=== PATIENT | female | born 1980 | race Caucasian/White ===

== ENCOUNTER 2018-12-14 12:56 | Day surgery (SDC) | payer OTHER ==
[2018-12-13 15:33] VITALS: BMI 40.0
--- NOTE | 2018-12-14 14:41 | HP ---
Admitting History and Physical - Admission Chief Complaint: Abnormal History of Present Illness: 38 yo recently diagnosed with missed , is pre op for suction D&C. History Source: Patient Limitations to Obtaining History: No Limitations - Past Medical History ...LMP: 10/10/18 ...: No ...: 2 ...Para: 1 - Past Surgical History Past Surgical History: Yes: - Smoking History Smoking history: Never smoked Have you smoked in the past 12 months: No - Alcohol/Substance Use Hx Alcohol Use: No - Social History Usual Living Arrangement: Yes: With Significant Other History of Recent Travel: No Home Medications - Allergies Allergies/Adverse Reactions: Allergies Allergy/AdvReac Type Severity Reaction Status Date / Time No Known Allergies Allergy Verified 12/14/18 13:44 - Home Medications Home Medications: Ambulatory Orders NK [No Known Home Medication] 12/14/18 Family Disease History - Family Disease History Family History: Unremarkable Review of Systems - Review of Systems Constitutional: reports: No Symptoms Eyes: reports: No Symptoms HENT: reports: No Symptoms Neck: reports: No Symptoms Respiratory: reports: No Symptoms Gastrointestinal: reports: No Symptoms Genitourinary: reports: No Symptoms Breasts: reports: No Symptoms Reported Neurological: reports: No Symptoms Psychiatric: reports: No Symptoms Pain Intensity: 0 Physical Examination Vital Signs: Vital Signs Temperature 97.8 F 12/14/18 13:40 Pulse Rate 74 12/14/18 13:40 Respiratory Rate 18 12/14/18 13:40 Blood Pressure 108/68 12/14/18 13:40 O2 Sat by Pulse Oximetry (%) 97 12/14/18 13:39 Constitutional: Yes: Well Nourished Eyes: Yes: Conjunctiva Clear HENT: Yes: Atraumatic Neck: Yes: Supple Cardiovascular: Yes: Regular Rate and Rhythm Respiratory: Yes: Regular Gastrointestinal: Yes: Normal Bowel Sounds Neurological: Yes: Alert, Oriented ...Motor Strength: WNL Psychiatric: Yes: Alert, Oriented Problem List - Problems (1) Missed with demise before 20 completed weeks of gestation Code(s): O02.1 - MISSED Assessment/Plan Missed Pre op for suction D&C Consent signed Anesthesia to see patient
[2018-12-14] MEDS ORDERED: PROPOFOL 20 ML ONE (14:48)
[2018-12-14] MEDS ORDERED: ACETAMINOPHEN INJECTION 100 ML IVPB ONE (15:19)
[2018-12-14] MEDS ORDERED: oxyCODONE HCL 5 MG TABLET PO PRN (15:24)
[2018-12-14] MEDS ORDERED: ACETAMINOPHEN 1000 MG/100 ML VIAL (NON FORMULARY) IVPB ONE (15:24)
[2018-12-14] MEDS ORDERED: ONDANSETRON 4 MG/2 ML VIAL IVPUSH PRN (15:24)
--- NOTE | 2018-12-14 15:29 | OP ---
Operative Note - Note: Operative Date: 12/14/18 Pre-Operative Diagnosis: Missed Operation: Suction D&C Post-Operative Diagnosis: Same as Pre-op Surgeon: Arlet Lujan Anesthesia: General Specimens Removed: Product of conception Estimated Blood Loss (mls): 5 Operative Report Dictated: Yes
[2018-12-14] MEDS ORDERED: LACTATED RINGERS SOLUTION 1,000 ML IV SCH (15:30)
--- NOTE | 2018-12-14 15:59 | OP ---
DATE OF OPERATION: 12/14/2018 PREOPERATIVE DIAGNOSIS: Missed . POSTOPERATIVE DIAGNOSIS: Missed . PROCEDURE: Suction dilatation and curettage. SURGEON: Arlet Lujan MD ANESTHESIA: General. COMPLICATIONS: None. ESTIMATED BLOOD LOSS: 5 mL. DESCRIPTION OF PROCEDURE: Patient was taken to the operating room where general anesthesia was administered. Patient was then placed in lithotomy position. She was then prepped and draped in proper sterile fashion. A weighted speculum was placed in the vagina. The anterior lip of the cervix was grasped with a single-toothed tenaculum. The cervix was then sequentially dilated with Edwards dilators. An 8- mm suction curet was then gently introduced into the uterine cavity. The suction curet was then rotated to clear the uterus of all products of conception. A sharp curettage was then performed. The suction curet was then reintroduced to clear the uterus of all remaining products of conception. Then the instruments were removed. The patient was taken out of lithotomy position. She was taken to PACU in stable condition. PATHOLOGY: Products of conception. Maricarmen [id number] MTDD
[2018-12-14 17:52] VITALS: BP 118/70; PULSE 72; TEMP 98.2
--- NOTE | 2018-12-18 12:11 | PATH ---
Surgical Pathology Report Patient Name: ESTHER PRASAD Med. Rec. #: [id number] /Age/Gender: 1980 (Age: 38) / F Account: [id number] Location: [facility] SURGICAL Taken: 12/14/2018 Received: 12/15/2018 Reported: 12/18/2018 Physicians: Arlet Lujan M.D. Specimen(s) Received PRODUCTS OF CONCEPTION Clinical History Missed Final Diagnosis UTERINE CONTENTS, EVACUATION: CHORIONIC VILLI CONSISTENT WITH PRODUCTS OF CONCEPTION. Electronically Signed Yomi Nesbitt M.D. Gross Description Received in formalin labeled "products of conception," is a 9.5 x 8.5 x 0.8 cm aggregate of red-brown soft tissue fragments admixed with blood clot. Probable villous tissue is identified. No somatic tissue is identified. A banking representative portion is submitted in one cassette. /12/15/201812/15/2018
== END 2018-12-14 17:30 | disposition home or self-care (01) ==
LOC: JASU-SURG 12:56
PROVIDERS: ATTEND Obstetrics & Gynecology
PROC: 10D17ZZ Extraction of Products of Conception, Retained, Via Natural or Artificial Opening (ICD-10-PCS; principal; 2018-12-14 15:30)
DX: O02.1 Missed abortion (principal)
CPT/HCPCS: 88305-TC; 94760; J0131

== ENCOUNTER 2019-10-15 07:15 | Emergency (ER) | payer OTHER ==
[2019-10-15 07:38] VITALS: TEMP 98.2; BMI 40.2
[2019-10-15] MEDS ORDERED: SODIUM CHLORIDE FOR INHALATION 3 ML VIAL.NEB IH ONE (07:57)
[2019-10-15] MEDS ORDERED: ALBUTEROL SO4 2.5/IPRATROPIUM 0.5 INH SOL 3 ML VIAL.NEB. NEB ONE ×2 (07:57→08:04)
--- NOTE | 2019-10-15 08:08 | PDOC ---
History of Present Illness - General History Source: Patient Exam Limitations: Clinical Condition - History of Present Illness Initial Comments: 10/15/19 08:03 Patient with history of asthma and 13 weeks presented with complaint of 2 weeks history of nasal congestion, runny nose, sinus congestion, headache and cough. Patient reports seeing her PCP 3 days ago for symptoms and was prescribed amoxicillin antibiotics which she is taking currently for sinusitis and Tylenol but reported has still been coughing and have intermittent chest tightness. Patient reported she was coughing so much it caused her to vomit. Denies vaginal bleeding, abdominal pain now, diarrhea, constipation, fever, chills, malaise, weakness. Patient has OB appointment in a week. Denies any other symptoms Is this a multiple visit Asthma Patient?: No Timing/Duration: other (2 weeks) <Abner Wright - Last Filed: 10/15/19 08:46> <Constantine Kessler - Last Filed: 10/15/19 16:24> - General Chief Complaint: Cold Symptoms Stated Complaint: ASTHMA, 16WKS Time Seen by Provider: 10/15/19 07:40 Past History - Past Medical History Anemia: Yes Asthma: Yes (LAST ATTACK 2013) Cancer: No Cardiac Disorders: No CVA: No COPD: No Dementia: No Diabetes: No GI Disorders: No Disorders: No HTN: Yes Hypercholesterolemia: No Liver Disease: No Seizures: No Thyroid Disease: No - Immunization History Immunization Up to Date: Yes - Psycho Social/Smoking Cessation Hx Smoking History: Never smoked Have you smoked in the past 12 months: No Hx Alcohol Use: No Drug/Substance Use Hx: No Substance Use Type: None Hx Substance Use Treatment: No <Abner Wright - Last Filed: 10/15/19 08:46> <Constantine Kessler - Last Filed: 10/15/19 16:24> - Past Medical History Allergies/Adverse Reactions: Allergies Allergy/AdvReac Type Severity Reaction Status Date / Time No Known Allergies Allergy Verified 10/15/19 07:32 Home Medications: Ambulatory Orders Albuterol Sulfate Inhaler - [Ventolin Hfa Inhaler -] 2 inh PO Q6H PRN #1 inh Review of Systems - Review of Systems Able to Perform ROS?: Yes Is the patient limited Haitian proficient: No Constitutional: No: Chills, Fever HEENTM: Yes: Symptoms Reported, See HPI, Nose Congestion. No: Eye Pain, Blurred Vision, Tearing, Recent change in vision, Double Vision, Cataracts, Ear Pain, Ocular Prothesis, Ear Discharge, Nose Pain, Tinnitus, Nose Bleeding, Hearing Loss, Throat Pain, Throat Swelling, Mouth Pain, Dental Problems, Difficulty Swallowing, Mouth Swelling, Other Respiratory: Yes: Symptoms reported, See HPI, Cough, Wheezing (intermittent). No: Orthopnea, Shortness of Breath, SOB with Exertion, SOB at Rest, Stridor, Productive cough, Hemoptysis, Other Cardiac (ROS): No: Symptoms Reported, See HPI, Chest Pain, Edema, Irregular Heart Rate, Lightheadedness, Palpitations, Syncope, Chest Tightness, Other ABD/GI: Yes: Nausea. No: Symptoms Reported, Vomiting, Abdominal cramping Musculoskeletal: No: Symptoms Reported Integumentary: No: Symptoms Reported Neurological: No: Symptoms reported All Other Systems: Reviewed and Negative <Abner Wright - Last Filed: 10/15/19 08:46> *Physical Exam - Vital Signs Last Vital Signs Temp Pulse Resp BP Pulse Ox 98.2 F 117 H 18 120/73 98 10/15/19 07:32 10/15/19 07:32 10/15/19 07:32 10/15/19 07:32 10/15/19 07:32 - Physical Exam 10/15/19 08:07 GENERAL: Well developed, well nourished. Awake and alert. No acute distress. HEENT: Bilateral nasal congestion with clear nasal discharge. Normocephalic, atraumatic. PERRLA, EOMI. No conjunctival pallor. Sclera are non-icteric. Moist mucous membranes. Oropharynx is clear. NECK: Supple. Full ROM. CARDIOVASCULAR: Regular rate and rhythm. No murmurs, rubs, or gallops. Distal pulses are 2+ and symmetric. PULMONARY: No evidence of respiratory distress. Lungs clear to auscultation bilaterally. No wheezing, rales or rhonchi. ABDOMINAL: Soft. Non-tender. Non-distended. No rebound or guarding. No organomegaly. Normoactive bowel sounds. MUSCULOSKELETAL Normal range of motion at all joints. SKIN: Warm and dry. Normal capillary refill. No rashes. No cyanosis. NEUROLOGICAL: Alert, awake, appropriate. Gait is normal without ataxia. PSYCHIATRIC: Cooperative. Good eye contact. Appropriate mood General Appearance: Yes: Nourished, Appropriately Dressed. No: Apparent Distress <Abner Wright - Last Filed: 10/15/19 08:46> - Vital Signs Last Vital Signs Temp Pulse Resp BP Pulse Ox 98.2 F 89 18 118/68 98 10/15/19 08:44 10/15/19 08:44 10/15/19 08:44 10/15/19 08:44 10/15/19 08:44 <Constantine Kessler - Last Filed: 10/15/19 16:24> ED Treatment Course - Medications Given in the ED: ED Medications Discontinued Medications Generic Name Dose Route Start Last Admin Trade Name Remedios PRN Reason Stop Dose Admin Albuterol/Ipratropium 1 amp 10/15/19 07:57 10/15/19 08:12 Duoneb - NEB 10/15/19 07:58 1 amp ONCE ONE Administration Sodium Chloride 3 ml 10/15/19 07:57 10/15/19 08:12 Normal Saline For Inhalation - IH 10/15/19 07:58 3 ml ONCE ONE Administration <Constantine Kessler - Last Filed: 10/15/19 16:24> Medical Decision Making - Medical Decision Making 10/15/19 08:04 Patient with history of asthma and 13 weeks presented with complaint of 2 weeks history of nasal congestion, runny nose, sinus congestion, headache and cough. Patient reports seeing her PCP 3 days ago for symptoms and was prescribed amoxicillin antibiotics which she is taking currently for sinusitis and Tylenol but reported has still been coughing and have intermittent chest tightness. Patient reported she was coughing so much it caused her to vomit. Denies vaginal bleeding, abdominal pain now, diarrhea, constipation, fever, chills, malaise, weakness. Patient has OB appointment in a week. Denies any other symptoms Exam significant for bilateral nasal congestion with clear nasal discharge with patient in no acute distress. Lungs clear to auscultation bilateral. No abdominal tenderness. Bedside ultrasound shows live IUP of 13.2 weeks gestational age with positive heart rate. Patient symptoms likely viral URI. Given patient with complaint of bronchospasm, will give a DuoNeb and saline nebulizer treatment. Will discharge patient home on Ventolin inhaler as needed for asthma with advised to continue previous prescribed amoxicillin antibiotics and Flonase nasal spray by PCP with follow-up back with PCP <Abner Wright - Last Filed: 10/15/19 08:46> - Medical Decision Making 10/15/19 16:24 I reviewed the case of the mid-level practitioner and was available for consultation while in the emergency department <Constantine Kessler - Last Filed: 10/15/19 16:24> Discharge - Discharge Information Problems reviewed: Yes - Admission No <Abner Wright - Last Filed: 10/15/19 08:46> <Constantine Kessler - Last Filed: 10/15/19 16:24> - Discharge Information Clinical Impression/Diagnosis: URI with cough and congestion, 16 weeks gestation of Asthma Qualifiers: Asthma severity: mild Asthma persistence: intermittent Asthma complication type : with acute exacerbation Qualified Code(s): J45.21 - Mild intermittent asthma with (acute) exacerbation Condition: Stable Disposition: HOME - Additional Discharge Information Prescriptions: Albuterol Sulfate Inhaler - [Ventolin Hfa Inhaler -] 2 inh PO Q6H PRN #1 inh PRN Reason: Asthma - Follow up/Referral Referrals: Constantine Mcintyre MD [Primary Care Provider] - - Patient Discharge Instructions Patient Printed Discharge Instructions: DI for Viral Upper Respiratory Infection -- Adult Additional Instructions: Continue with prescribed antibiotics and nasal spray from your primary care. Use prescribed inhaler as needed for asthma. Increase fluid intake. Follow-up with your primary care - Post Discharge Activity
[2019-10-15 08:45] VITALS: BP 118/68; PULSE 89
== END 2019-10-15 08:45 | disposition home or self-care (01) ==
LOC: JER 07:15
PROC: 3E0F7GC Introduction of Other Therapeutic Substance into Respiratory Tract, Via Natural or Artificial Opening (ICD-10-PCS; principal; 2019-10-15)
DX: O26.892 Other specified pregnancy related conditions, second trimester (principal); Z3A.16 16 weeks gestation of pregnancy; J45.21 Mild intermittent asthma with (acute) exacerbation
CPT/HCPCS: 99282-25